=== PATIENT | female | born 1995 | race American Indian/Alaskan Native ===

== ENCOUNTER 2019-11-04 04:21 | Inpatient (IN) | payer MEDICAID, OTHER ==
[2019-11-04] MEDS ORDERED: FAMOTIDINE 20 MG/2 ML INJ IV ONE ×2 (05:40→07:59)
[2019-11-04] MEDS ORDERED: BICITRA ORAL LIQD 30ML PO ONE (05:40)
[2019-11-04] MEDS ORDERED: BETAMET ACET/BETAMET NA PH 6 MG/ML INJ 5 ML MDV IM ONE (05:40)
[2019-11-04] MEDS ORDERED: METOCLOPRAMIDE 10 MG/2 ML INJ IV ONE (05:40)
[2019-11-04] MEDS ORDERED: ceFAZolin/Water 2 GM/20 ML 2 GM/20 ML SYRINGE IV NR (06:00)
[2019-11-04] MEDS ORDERED: OXYTOCIN 20 UNIT/1000ML DRIP 20 UNITS/1,000 ML BAG IV SCH ×2 (06:00→17:11)
[2019-11-04] MEDS ORDERED: LACTATED RINGERS 1,000 ML IV SCH (06:00)
[2019-11-04 06:28] LABS: Basophils % (Auto) 0.3 % (0.0-1.8); Eosinophils # (Auto) 0.2 K/mm3 (0.0-0.4); Eosinophils % (Auto) 1.7 % (0.0-4.3); Hematocrit 30.7 % (30.3-42.9); Hemoglobin 9.5 gm/dl (10.1-14.3); Lymphocytes # (Auto) 1.9 K/mm3 (1.2-5.4); Mean Corpuscular HGB Conc 31 % (30-34); Mean Corpuscular Volume 71 fl (79-97); Monocytes # (Auto) 1.3 K/mm3 (0.0-0.8); Platelet Count 249 K/mm3 (140-440); Red Cell Distribution Width 14.7 % (13.2-15.2)
--- NOTE | 2019-11-04 06:28 | History and Physical Report ---
History of Present Illness Date of examination: 11/04/19 (pt presents with SROM @ 34w Twin Di/Di) Date of admission: 11/04/19 04:21 Chief complaint: PPROM @ 34 w clear fluid History of present illness: EDC Confirmation: 12/15/2019 Gestational Age: 10 3/7 weeks Past History : 4 Term Births: 1 Living Children: 1 Para: 1 Aborta: 2 Elect. Ab: 1 Spont. Ab: 1 # 1 Delivery date: 2012 Weeks Gestation: 38 Delivery type: Anesthesia type: iv meds Delivery location: [facility] [place] Sex: Female weight: 5-17 Past Medical History: Negative Past Medical History Past Surgical History: Negative Past Surgical History Past Medical History Surgery (Non-tube tester): Negative Past Surgical History Abnormal PAP: negative ALCIDES Exposure: negative Infertility: negative Uterine Anomaly: negative Uterine Surgery (not C/S): negative Other Gynecologic Problems: negative Medical History Comments: neg Family Hx: neg Social Hx: tobacco: 2cig/day no etoh no family support in [facility] area +[place] Infection History Hx of STD: gonorrhea Personal hx. of genital herpes: no Partner hx. of genital herpes: no Varicella/Chicken Pox Status: Immunized Genetic History Congenital Heart Defect: Mom: no Dad: no Leticia Disease: Mom: no Dad: no Thalassemia Mom: no Dad: no Neural Tube Defect Mom: no Dad: no Down's Syndrome Mom: no Dad: no Elmer-Sachs Mom: no Dad: no Sickle Cell Disease/Trait Mom: no Dad: no Hemophilia Mom: no Dad: no Muscular Dystrophy Mom: no Dad: no Cystic Fibrosis Mom: no Dad: no Naseem Chorea Mom: no Dad: no Mental Retardation Mom: no Dad: no Fragile X Mom: no Dad: no Other Genetic/Chromosomal Disorder Mom: no Dad: no Child w/other defect Mom: no Dad: no Enviromental Exposures Xray Exposure: no Medication, drug, or alcohol use since LMP: no Chemical/Other Exposure: no Exposure to Cat Liter: no Hx of Parvovirus (Fifth Disease): no Occupational Exposure to Children: none Active Medications (reviewed today): None Current Allergies (reviewed today): No known allergies Past History - Obstetrical History Expected Date of Delivery: 12/15/19 Actual Gestation: 34 Week(s) 1 Day(s) : 4 Para: 1 Hx # Term Pregnancies: 1 Number of Pregnancies: 0 Spontaneous Abortions: 1 Induced : 1 Number of Living Children: 1 Medications and Allergies Allergies Allergy/AdvReac Type Severity Reaction Status Date / Time No Known Allergies Allergy Unverified 11/04/19 05:51 Active Meds: Active Medications Oxytocin/Sodium Chloride (Pitocin/Ns 20 Unit/1000ml Drip) 20 units in 1,000 mls @ 0 mls/hr IV TITR RENUKA Lactated Ringer's (Lactated Ringers) 1,000 mls @ 2,250 mls/hr IV PREOP RENUKA Stop: 11/05/19 06:27 Cefazolin Sodium (Ancef/Sterile Water 2 Gm/20 Ml) 2 gm in 20 mls @ 80 mls/hr IV PREOP NR; Protocol Stop: 11/04/19 23:45 - Vital Signs Vital signs: Vital Signs Pulse Pulse Ox 91 H 99 11/04/19 04:49 11/04/19 04:49 Temp Pulse Resp BP Pulse Ox 97.4 F L 107 H 18 112/61 98 11/04/19 04:58 11/04/19 05:24 11/04/19 04:58 11/04/19 05:17 11/04/19 05:24 - Physical Exam Breasts: Positive: deferred Cardiovascular: Regular rate, Normal S1, Normal S2 Lungs: Positive: Normal air movement Abdomen: Positive: normal appearance, soft, normal bowel sounds. Negative: distention, tenderness Genitourinary (Female): Positive: normal external genitalia Vulva: both: normal Vagina: Positive: normal moisture. Negative: discharge Cervix: Negative: lesion, discharge Uterus: Positive: normal size, normal contour Adnexa: both: normal Anus/Rectum: Positive: normal perianal skin, heme negative. Negative: rectal mass, hemorrhoids Extremities: Positive: edema Deep Tendon Reflex Grade: Normal +2 - Obstetrical FHR: category 1 Uterine Contraction Monitor Mode: External Cervical Dilatation: 2 (US present breech/breech) Cervical Effacement Percentage: 50 station: -5 Uterine Contraction Pattern: Irregular Uterine Tone Measurement Phase: Resting Uterine Contraction Intensity: Mild Results Result Diagrams: 11/04/19 05:59 All other labs normal. HBsAg Screen Negative Negative *1 RPR Non Reactive Non Reactive *2 Rubella Antibodies, IgG 1.97 index Immune >0.99 *3 Non-immune <0.90 Equivocal 0.90 - 0.99 Immune >0.99 ABO Grouping B *4 Rh Factor Positive *5 Please note: Prior records for this patient's ABO / Rh type are not available for additional verification. Antibody Screen Negative Negative *6 WBC [H] 17.2 x10E3/uL 3.4-10.8 *7 RBC 4.87 x10E6/uL 3.77-5.28 *8 Macrocytes present. Anisocytosis present. Hemoglobin 11.7 g/dL 11.1-15.9 *9 Hematocrit 37.8 % 34.0-46.6 *10 MCV [L] 78 fL 79-97 *11 MCH [L] 24.0 pg 26.6-33.0 *12 MCHC [L] 31.0 g/dL 31.5-35.7 *13 RDW 15.4 % 12.3-15.4 *14 Platelets 315 x10E3/uL 150-450 *15 Neutrophils 75 % Not Estab. *16 Lymphs 12 % Not Estab. *17 Monocytes 10 % Not Estab. *18 Eos 2 % Not Estab. *19 Basos 0 % Not Estab. *20 ! Immature Cells <No Reported Value> *21 Neutrophils (Absolute) [H] 12.8 x10E3/uL 1.4-7.0 *22 Lymphs (Absolute) 2.1 x10E3/uL 0.7-3.1 *23 Monocytes(Absolute) [H] 1.8 x10E3/uL 0.1-0.9 *24 Eos (Absolute) 0.4 x10E3/uL 0.0-0.4 *25 Baso (Absolute) 0.0 x10E3/uL 0.0-0.2 *26 ! Immature Granulocytes 1 % Not Estab. *27 ! Immature Grans (Abs) 0.1 x10E3/uL 0.0-0.1 *28 ! NRBC <No Reported Value> *29 Hematology Comments: Note: *30 Verified by microscopic examination. Tests: (2) Panel [id number] ([id number]) HIV Screen 4th Generation wRfx Non Reactive Non Reactive *31 Tests: (3) HCV Ab w/Rflx to Verification ([id number]) ! HCV Ab <0.1 s/co ratio 0.0-0.9 *32 Tests: (4) Comment: ([id number]) ! Comment: SPRCS *33 Non reactive HCV antibody screen is consistent with no HCV infection, unless recent infection is suspected or other evidence exists to indicate HCV infection. Tests: (5) Urine Culture, Routine ([id number]) Urine Culture, Routine Final report *34 Tests: (6) Result ([id number]) ! Result 1 MUG *35 Mixed urogenital max 10,000-25,000 colony forming units per mL Assessment and Plan 24yo @ 34w1d with Di/Di twin gestation with PPROM GBS unknown. aware All orders in EMR - Patient Problems (1) premature rupture of membranes (PPROM) with unknown onset of labor Onset Date: ~11/04/19 Current Visit: Yes Status: Acute Plan to address problem: SROM @ home this AM Pt reports clear fluid (2) Twin gestation, dichorionic/diamniotic (two placentae, two amniotic sacs) Onset Date: ~11/04/19 Current Visit: Yes Status: Acute Qualifiers: Trimester: third trimester Qualified Code(s): O30.043 - Twin , dichorionic/diamniotic, third trimester Plan to address problem: Di/Di twin gestation US done this AM breech/breech (3) 34 weeks gestation of Onset Date: ~11/04/19 Current Visit: Yes Status: Acute Plan to address problem: BMZ given as a rescue dose aware of admission. Pt renuka for c/s due to Both are breech presentation
--- NOTE | 2019-11-04 06:51 | Ultrasound Report ---
Limited OB ultrasound for presentation FINDINGS: Twin is seen. Twin A is in breech presentation. Twin B is also in breech presenta tion. heart rate for twin A is 121 bpm and for twin B 148 bpm. Signer Name: Krunal Long MD Signed: 11/04/2019 6:46 AM Workstation Name: [id number]
[2019-11-04] MEDS ORDERED: AMPICILLIN/NS 2 GM/100 ML 2 GM/100 ML BAG IV ONE (07:41)
[2019-11-04] MEDS ORDERED: METOCLOPRAMIDE 10 MG/2 ML INJ ONE (07:59)
[2019-11-04] MEDS ORDERED: BICITRA ORAL LIQD 30ML ONE (07:59)
--- NOTE | 2019-11-04 09:31 | Event Note ---
Date: 11/04/19 Plan of care d/w with the patient and family. All risk, benefits and alternatives were d/w pt and questions were answered. Consents to be signed and place d on the chart.
[2019-11-04] MEDS ORDERED: AMPICILLIN/NS 1 GM/50 ML 1 GM/50 ML BAG IV ONE (12:00)
--- NOTE | 2019-11-04 12:57 | Anesthesia Consultation ---
Anesthesia Consult and Med Hx Date of service: 11/04/19 - Airway Anesthetic Teeth Evaluation: Good ROM Head & Neck: Adequate Mental/Hyoid Distance: Adequate Mallampati Class: Class II Intubation Access Assessment: Good - Pulmonary Exam CTA: Yes - Cardiac Exam Cardiac Exam: RRR - Pre-Operative Health Status ASA Pre-Surgery Classification: ASA2 Proposed Anesthetic Plan: Spinal - Pulmonary Hx Asthma: No - Cardiovascular System Hx Hypertension: No - Central Nervous System Hx Seizures: No Hx Psychiatric Problems: No - Endocrine Hx Renal Disease: No Hx Hypothyroidism: No Hx Hyperthyroidism: No - Hematic Hx Anemia: No Hx Sickle Cell Disease: No - Other Systems Hx Alcohol Use: No
--- NOTE | 2019-11-04 12:57 | Anesthesia Day of Surgery ---
Anesthesia Day of Surgery - Day of Surgery Patient Examined: Yes Patient H&P Reviewed: Yes Patient is NPO: Yes
[2019-11-04] MEDS ORDERED: ONDANSETRON 4 MG/2 ML INJ IV PRN (12:58)
[2019-11-04] MEDS ORDERED: HYDROmorphone 1 MG/1 ML INJ IV PRN ×2 (12:58)
[2019-11-04] MEDS ORDERED: PROMETHAZINE 25 MG TAB PO PRN (12:58)
[2019-11-04] MEDS ORDERED: NALOXONE 0.4 MG/1 ML INJ IV PRN ×2 (12:58→17:11)
[2019-11-04] MEDS ORDERED: PROMETHAZINE 25 MG RECT SUPP PR PRN (12:58)
[2019-11-04] MEDS ORDERED: fentaNYL-BUPIV 2 MCG/ML-0.125% 200 MCG/100 ML BAG EPIDURAL SCH (13:00)
--- NOTE | 2019-11-04 13:40 | Event Note ---
Date: 11/04/19 . Patient informed the risks of the surgery include bleeding possibly bleeding heavy enough to require blood transfusion, infection possible damage to bowel bladder ureter. All questions answered. Patient agrees to proceed
[2019-11-04] MEDS ORDERED: KETOROLAC 30 MG/1 ML INJ ONE (15:08)
[2019-11-04] MEDS ORDERED: DEXMEDETOMIDINE 200 MCG/2 ML VIAL IV ONE (15:08)
[2019-11-04] MEDS ORDERED: PHENYLEPHRINE/NS 1,000 MCG/10 ML SYRINGE (OR USE) IV ONE (15:08)
[2019-11-04] MEDS ORDERED: ONDANSETRON 4 MG/2 ML INJ ONE (15:08)
--- NOTE | 2019-11-04 15:11 | Operative Report ---
Operative Report Operative Report: Date of procedure: 11/04/2019 Pre-operative diagnosis: Intrauterine at 34 weeks with premat ure rupture of membranes, twin gestation both in breech position Post-operative diagnosis: Same Procedure name(s): Primary low transverse section Surgeon: Law Richey MD Pesticide Use Medical Coordinator: dom Mattub tech Anesthesia: Spinal EBL: Thousand cc Complications: None Findings: Normal uterus tubes and ovaries bilaterally. Baby A male weight 5 lbs. 6 oz. Apgars 8 at 1 minute and 9 at 5 minutes. Baby B female weighing 4 lbs. 4 oz. 7 at 1 minute and 9 at 5 minutes Specimen(s): Placenta Procedure: The patient was brought to the operating room. Her spinal was placed without any complications. She was then placed in left lateral tilt. Prepped and draped in the usual sterile manner. After testing for adequate anesthesia level, a Pfannenstiel incision was made. This incision was taken down to the fascia. The fascia was then nicked in the midline. This incision was extended out laterally with Ga scissors. The fascia was then sharply and bluntly from the underlying rectus muscles. The rectus muscles were bluntly and sharply . The peritoneum was then entered with the package yarns drying machine operator's fingers. This incision was spread vertically with care not to damage the bladder below. The Ryan self-retaining tractor was then placed without any difficulty. The bladder flap was then formed sharply and bluntly with Metzenbaum scissors. A transverse incision was made in lower uterine segment. This incision was extended laterally with the operators fingers. The amniotic sac was then entered bluntly with the package yarns drying machine operator's fingers. The first was delivered from the michelle breech position. The was delivered by delivered in the breech first flexing and extending the lower extremities followed by raising the breech then sweeping flexing and extending the upper extremities and after coming head was then delivered safely. The infant was bulb suctioned on the mother's abdomen. Cord was double clamped and cut. The infant was then passed to the nursery personnel who were in attendance. The above scores were given by the nursery personnel. The amniotic sac of the second was interrupted this infant was delivered from the footling breech position. The was delivered by grasping his feet and extending the lower extremities followed by raising the breech then sweeping flexing and extending the upper extremities and after coming head was then delivered safely. The infant was bulb suctioned on the mother's abdomen. Cord was double clamped and cut. The infant was then passed to the nursery personnel who were in attendance. The above scores were given by the nursery personnel. The placenta was then bluntly removed. The uterus was then externalized and wiped clean the remaining products. The uterine incision was closed in layers. The first incision was closed in a locking manner using 0 Vicryl. This was followed by imbricating stitch also with 0 Vicryl. This closure was hemostatic. The bladder flap was copiously irrigated and found to be hemostatic. The pelvis was copiously irrigated and found to be hemostatic. The uterus was then placed back to the patient's abdomen. The retractors were removed. The rectus muscles were inspected and found to be hemostatic. The fascia was then closed in a running manner using 0 Vicryl. This incision was hemostatic irrigation Bovie. The skin was reapproximated with 4-0 Vicryl subcuticularly. The patient tolerated procedure well. Her urine was clear. The infants were admitted to the intensive care nursery. The patient was accompanied to recovery room in good condition. Instrument count correct times 3.
[2019-11-04] MEDS ORDERED: LANOLIN/ZINC/DIMETHICONE (LANSINOH) 7 GM TP PRN (17:11)
[2019-11-04] MEDS ORDERED: WITCH HAZEL/ GLYCERIN PAD TP PRN (17:11)
[2019-11-04] MEDS ORDERED: SIMETHICONE 80 MG CHEW TAB PO PRN (17:11)
[2019-11-04] MEDS ORDERED: D5W/LACTATED RINGERS 1,000 ML IV SCH (17:11)
[2019-11-04] MEDS ORDERED: HYDROcodone/ACETAMINOPHEN 5-325 MG TAB PO PRN (17:11)
[2019-11-04] MEDS ORDERED: ceFAZolin/NS 1 GM/50 ML 1 GM/50 ML BAG IV SCH (17:11)
[2019-11-04] MEDS: HYDROcodone/ACETAMINOPHEN 5-325 MG TAB PO PRN (18:20)
[2019-11-05] MEDS: HYDROcodone/ACETAMINOPHEN 5-325 MG TAB PO PRN ×4 (00:30→20:14)
[2019-11-05] MEDS: KETOROLAC 30 MG/1 ML INJ IV SCH ×2 (04:00→10:40)
--- NOTE | 2019-11-05 07:55 | Progress Note ---
Assessment and Plan patient doing well, just returned from visiting babies in NICU. H&H drawn but not yet results. discussed expectations of pain and management options after surgery. VSSAF. Isaac umanzor. - Patient Problems (1) delivery delivered Current Visit: Yes Status: Acute Plan to address problem: continue postop pathway advance activty and diet as tolerated rn to remove dressing after shower this afternoon. Subjective - Subjective Date of service: 11/05/19 Principal diagnosis: postop day #1 s/p primary c/s for breech twins Patient reports: appetite normal, voiding normally, pain well controlled, ambulating normally, no dizzy ambulation, no flatus, no nauseated : in NICU (pumping) Objective - Vital Signs Latest vital signs: Vital Signs Temp Pulse Resp BP BP Pulse Ox 11/05/19 04:15 98 F 60 18 108/72 11/05/19 00:00 98.6 F 72 16 114/62 11/04/19 19:30 98.7 F 69 18 106/69 11/04/19 18:20 20 11/04/19 17:30 20 11/04/19 17:05 98.2 F 72 20 106/63 100 11/04/19 15:50 72 18 118/65 100 11/04/19 15:35 72 17 110/34 99 11/04/19 15:20 68 10 L 110/58 100 11/04/19 15:15 76 15 94/46 100 11/04/19 15:10 77 12 114/61 100 11/04/19 15:05 98.0 F 73 15 104/56 100 11/04/19 14:15 98.9 F 11/04/19 13:35 90 97 11/04/19 13:30 87 98 11/04/19 13:24 91 H 91 11/04/19 13:22 102 H 98 11/04/19 13:17 99 H 100 11/04/19 13:12 94 H 99 11/04/19 13:07 91 H 99 11/04/19 13:02 92 H 99 11/04/19 12:57 98 H 100 11/04/19 12:52 85 99 11/04/19 12:47 82 99 11/04/19 12:45 97 H 89 11/04/19 12:42 90 99 11/04/19 12:37 88 100 11/04/19 12:32 78 99 11/04/19 12:27 93 H 100 11/04/19 12:22 85 100 11/04/19 12:17 91 H 100 11/04/19 12:16 57 L 77 L 11/04/19 11:36 84 100 11/04/19 10:36 97 H 99 11/04/19 10:31 94 H 99 11/04/19 10:26 89 98 11/04/19 10:21 89 98 11/04/19 10:16 90 99 11/04/19 10:11 102 H 99 11/04/19 10:06 92 H 99 11/04/19 10:01 86 97 11/04/19 09:50 95 H 100 11/04/19 09:45 90 100 11/04/19 09:40 81 100 11/04/19 09:35 87 100 11/04/19 09:30 85 100 11/04/19 09:25 85 100 11/04/19 09:20 92 H 100 11/04/19 09:15 95 H 100 11/04/19 09:10 86 100 11/04/19 09:04 89 100 11/04/19 08:59 90 99 11/04/19 08:54 81 100 11/04/19 08:49 103 H 99 11/04/19 08:47 88 91 11/04/19 08:44 79 100 11/04/19 08:39 87 99 11/04/19 08:34 85 100 11/04/19 08:29 79 100 11/04/19 08:24 86 100 11/04/19 08:19 93 H 100 11/04/19 08:14 84 99 11/04/19 08:09 91 H 97 11/04/19 08:04 84 100 11/04/19 07:59 87 98 11/04/19 07:54 84 99 Intake and Output 11/04/19 11/04/19 11/05/19 15:59 23:59 07:59 Intake Total 1000 850 300 Output Total 869 095 7828 Balance 800 500 -1100 Intake: IV 1000 650 Oral 200 Intake, Free Water 300 Output: Urine 388 344 9163 Indwelling Catheter 300 1400 Uretheral (Connor) 100 Other: Total, Intake Amount 200 Total, Output Amount 300 1400 Voiding Method Toilet # Voids Void 1 Estimated Blood Loss 1,000 - Exam Breasts: Present: normal, Cardiovascular: Present: Regular rate Lungs: Present: Clear to auscultation, Normal air movement Abdomen: Present: normal appearance, soft Vulva: both: normal Uterus: Present: normal, firm, fundal height at umbilicus Extremities: Present: normal Incision: Present: normal, dry, dressed
[2019-11-05 09:06] LABS: Hematocrit 28.8 % (30.3-42.9); Hemoglobin 8.8 gm/dl (10.1-14.3)
[2019-11-05] MEDS: PRENATAL VIT27-FE FUMARATE-FOLIC ACID VIT TAB PO SCH (10:40)
[2019-11-05] MEDS: FERROUS SULFATE 325 MG TAB PO SCH (10:40)
[2019-11-05] MEDS ORDERED: IBUPROFEN 800 MG TAB PO PRN (15:12)
[2019-11-06] MEDS: HYDROcodone/ACETAMINOPHEN 5-325 MG TAB PO PRN (06:43)
--- NOTE | 2019-11-06 06:50 | Discharge Summary ---
Providers - Providers Date of Admission: 11/04/19 04:21 Date of discharge: 11/06/19 (pt desires option to go home tonight because "I wasn't prepared for my babies yet.") Attending physician: AUDREY LIAZMA 11/04/19 17:11 Consult to Auto Tester [CONS] Routine Reason For Exam: Primary care physician: AUDREY LIZAMA Hospitalization Reason for admission: labor, rupture of membranes Delivery: Procedure: primary low transverse (breech/breech twins) Episiotomy: none Laceration: none Incision: normal, dry, intact Other procedures: none complications: none Discharge diagnosis: delivery baby: twins (female/male stable in NICU) Hospital course: uncomplicated primary section breech twins with PPROM Pt OOB kneeling and praying @ bedside. "I am so thankful." VSS FF below umb Lochia scant Incision D&I Anemic chronic Asymptomatic Doing very well s/p section P: d/c today with instructions RTO 1 week postop visit. RX on chart Condition at discharge: Good Disposition: DC-01 TO HOME OR SELFCARE - Discharge Diagnoses (1) delivery delivered Status: Acute Comment: RTO 1 week post-op visit Plan - Discharge Medications Prescriptions: Lidocain2.5%/Prilocai2.5% [Emla] 5 gm TP ONCE #1 tube Ferrous Sulfate [Feosol 325 MG tab] 325 mg PO BID #60 tablet Ibuprofen [Motrin 800 MG tab] 800 mg PO Q6H PRN #30 tablet PRN Reason: Pain oxyCODONE /ACETAMINOPHEN [Percocet 5/325 mg] 1 - 2 tab PO Q4H PRN #20 tablet PRN Reason: Pain, Moderate - Provider Discharge Summary Activity: routine, no sex for 6 weeks, no heavy lifting 4 weeks, no strenuous exercise Diet: routine Instructions: routine Additional instructions: [] Smoking cessation referral if applicable(refer to patient education folder for contact #) [] Refer to [facility] Booklet Call your doctor immediately for: * Fever > 100.5 * Heavy vaginal bleeding ( >1 pad per hour) * Severe persistent headache * Shortness of breath * Reddened, hot, painful area to leg or breast * Drainage or odor from incision. * Keep incision clean and dry at all times and follow doctor's instructions regarding bathing/showering - Follow up plan Follow up: AUDREY LIZAMA MD [Primary Care Provider] - 7 Days (Congratulations! Please call [phone] to schedule your postoperative visit in one week. When your son is discharged call to schedule his circumcision. Bring the EMLA cream with you to his visit. Do NOT use at home. Take medications as prescribed. Call with any questions. )
[2019-11-06 09:38] VITALS: BP 130/77
[2019-11-06] MEDS: PRENATAL VIT27-FE FUMARATE-FOLIC ACID VIT TAB PO SCH (12:51)
[2019-11-06] MEDS: FERROUS SULFATE 325 MG TAB PO SCH (12:51)
== END 2019-11-06 15:41 | disposition home or self-care (01) | DRG 765 ==
LOC: APU 04:21 → LD 04:29 → OB 17:10
PROVIDERS: ADMIT Obstetrics & Gynecology; ATTEND Obstetrics & Gynecology
PROC: 10D00Z1 Extraction of Products of Conception, Low, Open Approach (ICD-10-PCS; principal; 2019-11-04)
DX: O32.1XX0 Maternal care for breech presentation, not applicable or unspecified (principal); O60.14X0 Preterm labor third trimester with preterm delivery third trimester, not applicable or unspecified; O30.003 Twin pregnancy, unspecified number of placenta and unspecified number of amniotic sacs, third trimester; Z3A.34 34 weeks gestation of pregnancy; Z37.2 Twins, both liveborn; O42.013 Preterm premature rupture of membranes, onset of labor within 24 hours of rupture, third trimester
CPT/HCPCS: 36415; 76815; 85014; 85018; 85025; 86592; 86850; 86900; 86901; 88307; G0378; J0290; J0690; J0702; J1885; J2370; J2405; J2590; J2765; J3490; J7120; J7121